=== PATIENT | female | born 1945 | race Caucasian/White ===

== ENCOUNTER → 2019-05-15 | Outpatient (CLI) | payer OTHER ==
[~2019-05-15] MED LIST: ADULT LOW DOSE81 MG PO; ALDACTAZIDE 251 EAC1 PO; AMBIEN 5 MG TABL5 M1 PO; ASPIRIN325 PO; BENADRYL25 MG PO; COLACE100 MG PO; HYDROCODONE-AP1 EAC6 PO; LEVOTHYROXINE0.05 MG PAD; METAMUCIL PAC1 UDPKT PO; METFORMIN HCL500 MG PO; MILK OF MA2400 MG/10 PO; MIRALAX17 G1 PO; MOBIC15 MG PO; NEURONTIN 300300 M1 PO; OMEPRAZOLE20 M2 PO; OXYCODONE HCL 55 MG PO; TYLENOL325 MG PO; XARELTO10 MG PO
== END ==
LOC: M.RAD 05-09 12:20
DX: Z12.31 Encounter for screening mammogram for malignant neoplasm of breast (principal); M81.0 Age-related osteoporosis without current pathological fracture; M85.89 Other specified disorders of bone density and structure, multiple sites; Z78.0 Asymptomatic menopausal state